=== PATIENT | female | born 1975 | race Caucasian/White ===

== ENCOUNTER 2017-02-13 22:12 | Emergency (ER) | payer OTHER ==
[2017-02-13 22:42] LABS: BASO % 0.4 % (0.1-1.2); EOS # 0.1 10_X3_uL (0.0-0.4); EOS % 1.1 % (0.7-5.8); GRAN # 7.7 10_X3_uL (1.6-6.1); GRAN % 67.4 % (34.0-71.1); HEMATOCRIT 41.5 % (34-45); HEMOGLOBIN 14.5 g/dL (11.2-15.7); LYMPH # 2.6 10_X3_uL (1.2-3.7); LYMPH % 22.7 % (19.3-51.7); MEAN CORPUSCULAR HEMOGLOBIN 32.9 pg (27.0-33.0); MEAN CORPUSCULAR HGB CONC 34.9 g/dL (32.0-36.0); MEAN CORPUSCULAR VOLUME 94.1 fL (79-95); MONO % 8.4 % (4.7-12.5); PLATELET COUNT 251 x10_3/uL (182-369); RED BLOOD COUNT 4.41 x10_6/uL (3.9-5.2); WHITE BLOOD COUNT 11.4 x10_3/uL (4.0-10.0)
[2017-02-13 22:53] LABS: ALKALINE PHOSPHATASE 73 U/L (50-136); ALT/SGPT 38 U/L (3.5-33.9); AST/SGOT 23 U/L (7.04-26.96); BLOOD UREA NITROGEN 15 mg/dL (7-18); CALCIUM 9.2 mg/dL (8.7-10.7); CARBON DIOXIDE 28 mmol/L (21-32); CREATINE KINASE 54 U/L (21-215); GLUCOSE,RANDOM 120 mg/dL (70-99); POTASSIUM 3.5 mmol/L (3.5-5.1); SODIUM 138 mmol/L (136-145); TOTAL PROTEIN 6.8 gm/dL (6.4-8.2)
== END 2017-02-14 00:55 | disposition home or self-care (01) ==
LOC: ER 22:12
PROVIDERS: Emergency Medicine
DX: R42 Dizziness and giddiness (principal); R55 Syncope and collapse; S70.01XA Contusion of right hip, initial encounter; S51.811A Laceration without foreign body of right forearm, initial encounter; W19.XXXA Unspecified fall, initial encounter; E11.9 Type 2 diabetes mellitus without complications; E78.5 Hyperlipidemia, unspecified; I10 Essential (primary) hypertension; G89.29 Other chronic pain; Z98.51 Tubal ligation status; Z88.0 Allergy status to penicillin; Z88.5 Allergy status to narcotic agent; F17.210 Nicotine dependence, cigarettes, uncomplicated; Z79.899 Other long term (current) drug therapy; Z79.891 Long term (current) use of opiate analgesic; Z79.84 Long term (current) use of oral hypoglycemic drugs
CPT/HCPCS: 36415; 70450; 73502; 80053; 82550; 82553; 85025; 93005; 99284-25